=== PATIENT | female | born 1975 | race Caucasian/White ===

== ENCOUNTER 2017-02-11 13:04 | Day surgery (SDC) | payer OTHER ==
[~2017-02-11] VITALS: Ht 157.5 cm; Wt 99.1 kg
--- NOTE | ~2017-02-11 | HP ---
PATIENT'S NAME: BRITTON CORDOVA [facility] AGE: 42 Y [address] ROOM: [place] [address] LOCATION: [facility] ADMIT DATE: 02/11/2017 History & Physical DISCHARGE DATE: FAMILY PHYSICIAN: Rufina Hinojosa MD ATTENDING PHYSICIAN: Myles Hendricks DATE OF SERVICE: CHIEF COMPLAINT: Right lower quadrant abdominal pain. HPI: Britton is a 42-year-old female, who presented to [facility] this morning with complaints of right lower quadrant abdominal pain. The patient states that on February 09, 2017, she developed pain in the epigastric region that radiated into the left upper quadrant. She developed nausea and diarrhea with this. Later that night, the pain became more localized in the right lower quadrant. She states that she laid around at home all day yesterday and her convinced her today that she needed to come in and be seen. She states that she had similar pain approximately 2 months ago, which resolved on its own. PAST MEDICAL HISTORY: Allergies: Penicillin, macrolide, ethyl alcohol, and cefaclor. MEDICATIONS AT HOME: Include: 1. Prilosec. 2. Claritin. 3. Multivitamin. ILLNESSES: Include hiatal hernia, seasonal allergies, and psoriasis. OPERATIONS: EGD. SOCIAL HISTORY: The patient lives near [place]. She smokes a pack of cigarettes per day. Does not consume alcohol. FAMILY HISTORY: Not obtained. REVIEW OF SYSTEMS: The patient denies any recent coughs or colds. No shortness of breath or PATIENT'S NAME: DEANBRITTON FORTE [facility] AGE: 42 Y [address] ROOM: [place] [address] LOCATION: [facility] ADMIT DATE: 02/11/2017 History & Physical DISCHARGE DATE: FAMILY PHYSICIAN: Rufina Hinojosa MD ATTENDING PHYSICIAN: Myles Hendricks chest pain. No prior bowel issues. PHYSICAL EXAMINATION: VITAL SIGNS: Temperature is 99.0, blood pressure 132/63, pulse 93, respirations 20. GENERAL: A 42-year-old female, who is alert, oriented, pleasant, cooperative. EYES, EARS, NOSE, AND THROAT: Grossly normal. LUNGS: Clear. HEART: Regular. ABDOMEN: Soft, very tender in the right lower quadrant with positive Rovsing sign. EXTREMITIES: The patient appears to move all extremities equally. LABORATORY WORK: White blood cell count is 14.1, hemoglobin 12.7, hematocrit 38.1, platelets 310. Sodium 140, potassium 3.7, chloride 109, CO2 24, BUN 14, creatinine 0.82, glucose 101, total bilirubin 0.8, alkaline phosphatase 78, AST 12, and ALT 12. CT scan of the abdomen and pelvis showed changes consistent with acute appendicitis without abscess. ASSESSMENT: A 42-year-old female with acute appendicitis. PLAN: Dr. Hendricks discussed the diagnosis with the patient. He discussed options for antibiotic treatment versus surgical removal of the appendix. The operation along with risks and benefits were discussed. Risks include bleeding, infection, abscess formation, injury to other structures, hernias, etc. Tentatively, the patient would like to try to be discharged home yet today. Her questions and concerns were addressed. Dr. Hendricks evaluated the patient and was involved in the assessment and plan and is available for supervision. KYAW MARIE PA-C FOR MD TASIA BROWN/bri /[id number] D: [id number] T: [id number] HISTORY & PHYSICAL
--- NOTE | ~2017-02-11 | OR ---
[facility] AGE: 42 Y [address] ROOM: [address] [place], [place] [address] LOCATION: [facility] ADMIT DATE: 02/11/2017 OR/Procedure Report DISCHARGE DATE: FAMILY PHYSICIAN: Rufina Hinojosa MD ATTENDING PHYSICIAN: Nicole Medrano SURGEON: Nicole Medrano MD MECHANICAL ENGINEERING TEACHER: Jo Ann Nguyen PA-C. DATE OF PROCEDURE: 02/11/2017 PREOPERATIVE DIAGNOSIS: Acute appendicitis. POSTOPERATIVE DIAGNOSIS: Severe acute appendicitis. PROCEDURE PERFORMED: Laparoscopic appendectomy. ANESTHESIA: General endotracheal. ESTIMATED BLOOD LOSS: 10 mL. SPECIMEN: Appendix. REASON FOR PROCEDURE: The patient is a 42-year-old female, who began having abdominal pain 2 days ago. It moved into the right lower quadrant and got progressively worse. She saw Dr. Hinojosa and after evaluation decided to get a CT scan which confirmed acute appendicitis. I discussed the risks, benefits of surgery with her and she elected to proceed with appendectomy. FINDINGS: The patient had a severely inflamed appendix all the way down to the base of it with some exudative reaction. No obvious perforation. PROCEDURE IN DETAIL: The patient was taken to the operating suite and placed in the supine position. After general endotracheal anesthesia was obtained, the abdomen was prepped with ChloraPrep and sterilely draped. Marcaine was infiltrated into the incision sites. A 1 cm infraumbilical incision was made. The umbilicus was grasped and elevated and a Veress needle was used to obtain a pneumoperitoneum. Initially, the abdominal pressures looked good and insufflation seemed okay, but the pressure was elevated fairly rapidly. We went ahead and removed the Veress needle and a 5 mm trocar using the Visiport was advanced across the abdominal wall. We were able to obtain a pneumoperitoneum and confirmed placement. We then placed a 5 mm left lower quadrant trocar and a 12 mm right lower quadrant trocar under direct visualization. There was some blood down in the pelvis and around the appendix. This looked fairly acute. I assume it is from the trocar placement though I did not see any active bleeding from around the trocars. No other obvious bleeding source was obtained. We aspirated this out and it did not [facility] AGE: 42 Y [address] ROOM: [facility] [place], [place] [address] LOCATION: [facility] ADMIT DATE: 02/11/2017 OR/Procedure Report DISCHARGE DATE: FAMILY PHYSICIAN: Rufina Hinojosa MD ATTENDING PHYSICIAN: Nicole Medrano seem to reaccumulate. We went ahead and found the appendix. The entire appendix was markedly swollen and inflamed all the way down to the base. The mesoappendix was divided with cautery. Once mobilized, the endoscopic TORRES stapler was fired across the base of the appendix. The appendix was then placed in an endo retrieval bag and brought out through the 12-mm trocar opening. The staple line was intact that there was a little more of an appendiceal stump that I initially thought. We went ahead and fired another load of the stapler to remove this little appendiceal stump. This was then removed as well. We then washed out the right lower quadrant and pelvis. All irrigation was removed that we could. No signs of any ongoing bleeding. The fascia in the right lower quadrant was closed with the Vicryl suture. We used an Endo Close needle because of her morbid obesity. The pneumoperitoneum was then evacuated. The skin incisions were all closed with subcuticular Monocryl. Benzoin, Steri-Strips, and gauze dressings were applied. POSTPROCEDURE PLAN: The patient will be sent to recovery. If doing okay, we will plan on discharging her home. She was given prescription for [place] for pain control. She is to call if any problems or obvious signs of infection. I will see her back in the office in 10 days. NICOLE MEDRANO MD JTM/modl /[id number] CC: Rufina Hinojosa MD d: 02/11/17 2352 t: 02/25/17 0941, OPERATIVE SUMMARY
[2017-02-11] MEDS ORDERED: PRILOSEC10 MG PO (13:22)
[2017-02-11] MEDS ORDERED: CLARITIN D 24HR1 TAB PO (13:22)
[2017-02-11] MEDS ORDERED: MULTI VITAMIN1 EACH PO (13:24)
[2017-02-11] MEDS ORDERED: NORCO 5-325 TA1 EACH PO (16:02)
== END 2017-02-11 16:45 | disposition disaster alternative care site (69) ==
LOC: GSDC 13:04 → G3N 13:04 → GSDC 16:45
PROC: 0DTJ4ZZ Resection of Appendix, Percutaneous Endoscopic Approach (ICD-10-PCS; principal; 2017-02-11)
DX: K35.80 Unspecified acute appendicitis (principal); F17.210 Nicotine dependence, cigarettes, uncomplicated; K21.9 Gastro-esophageal reflux disease without esophagitis; K44.9 Diaphragmatic hernia without obstruction or gangrene; L40.9 Psoriasis, unspecified; J30.2 Other seasonal allergic rhinitis; E66.01 Morbid (severe) obesity due to excess calories; Z68.41 Body mass index [BMI] 40.0-44.9, adult; Z79.899 Other long term (current) drug therapy
CPT/HCPCS: J1335; J2765; J7030